=== PATIENT | female | born 1990 | race Caucasian/White ===

== ENCOUNTER 2016-12-05 16:02 | Emergency (ER) | payer MEDICAID ==
[~2016-12-05] VITALS: Ht 154.9 cm; Wt 61.0 kg
[2016-12-05] MEDS ORDERED: KETOROLAC 60 MG/2 ML (TORADOL) VIAL IM ONE (16:40)
[2016-12-05] MEDS ORDERED: ORPHENADRINE 60 MG/2 ML (NORFLEX) AMP IM ONE (16:40)
[2016-12-05 19:50] VITALS: BP 136/79
== END 2016-12-05 17:14 | disposition home or self-care (01) ==
LOC: ED 16:04
DX: M54.5 Low back pain (principal)
CPT/HCPCS: 96372; 99282; J1885; J2360; 99283

== ENCOUNTER → 2016-12-06 | Emergency (ER) | payer MEDICAID ==
[~2016-12-06] VITALS: Ht 154.9 cm; Wt 60.0 kg
[2016-12-06 16:20] VITALS: BP 110/81
== END | disposition home or self-care (01) ==
LOC: ED 16:12
DX: M54.89 Other dorsalgia (principal)
CPT/HCPCS: 99282; 99283